=== PATIENT | male | born 1950 | race African-American/Black ===

== ENCOUNTER 2016-04-16 16:29 | Inpatient (IN) | payer BC ==
[~2016-04-16] VITALS: Ht 182.9 cm; Wt 91.1 kg
[~2016-04-16 16:29] MED LIST: LATA0.002 EACH EYE; SYMB160A INH; VIAG25TA PO
[2016-04-20] MEDS ORDERED: THROMBIN (TOPICAL) 5,000 UNIT VIAL ONE ×2 (07:00→11:08)
[2016-04-20] MEDS ORDERED: MICROFIBRILLAR COLLAGEN HEMOSTAT 70 X 35 MM BANDAGE ONE (07:00)
[2016-04-20] MEDS ORDERED: LACTATED RINGER'S 1000 ML IV SCH (07:00)
[2016-04-20] MEDS ORDERED: INSULIN HUMAN REGULAR 1,000 UNITS/10 ML VIAL SQ PRN (07:00)
[2016-04-20] MEDS: SODIUM CHLORID 0.9% 500 ML IV SCH ×2 (07:00→23:21)
[2016-04-20] MEDS ORDERED: ceFAZolin INJ 1,000 MG VIAL ONE ×2 (07:00→07:04)
[2016-04-20] MEDS ORDERED: GELFOAM SIZE 100 ONE (07:00)
[2016-04-20] MEDS ORDERED: METOPROLOL TARTRATE 25 MG TAB PO PRN (07:00)
[2016-04-20] MEDS ORDERED: GENTAMICIN SULFATE 80 MG/2 ML VIAL ONE (07:00)
[2016-04-20] MEDS ORDERED: VANCOMYCIN HCL 1000 MG VIAL ONE (07:04)
[2016-04-20 07:15] VITALS: BP 143/81; PULSE 54; RESP 16; TEMP 97.4; O2SAT 100
[2016-04-20] MEDS ORDERED: MIDAZOLAM HCL 2 MG/2 ML VIAL ONE (08:27)
[2016-04-20] MEDS ORDERED: ARTIFICIAL TEARS OPTH OINT 3.5 APPLIC/3.5 GM TUBO ONE (08:27)
[2016-04-20] MEDS ORDERED: fentaNYL CITRATE 250 MCG/5 ML AMP ONE ×2 (08:27→13:27)
[2016-04-20] MEDS ORDERED: HYDROmorphone HCL PF 2 MG/ML VIAL ONE (08:27)
[2016-04-20] MEDS ORDERED: ACETAMINOPHEN 1000 MG/100 ML VIAL IV ONE (08:27)
[2016-04-20] MEDS ORDERED: PROPOFOL 200 MG/20 ML AMP IV ONE (10:46)
[2016-04-20] MEDS ORDERED: ONDANSETRON HCL 4 MG/2 ML VIAL IV PUSH ONE (10:46)
[2016-04-20] MEDS ORDERED: LACTATED RINGER'S 1000 ML INJ 2,000 ML IV ONE (10:46)
[2016-04-20] MEDS ORDERED: SODIUM CHLORID 0.9% 500 ML INJ 500 ML IV ONE (10:46)
[2016-04-20] MEDS ORDERED: GELATIN POWDER 1 GM PACKET ONE (11:08)
[2016-04-20] MEDS ORDERED: BUPIVACAINE/EPINEPHRINE 0.5% PF 30 ML VIAL INFIL ONE (12:08)
[2016-04-20] MEDS ORDERED: ACETAMINOPHEN 325 MG TAB PO PRN (12:15)
[2016-04-20] MEDS ORDERED: BISACODYL 10 MG SUPP PR PRN (12:15)
[2016-04-20] MEDS ORDERED: SODIUM CHLORIDE 0.9% FLUSH 5 ML FLUSH IVF PRN (12:15)
[2016-04-20] MEDS ORDERED: ONDANSETRON HCL 4 MG/2 ML VIAL IV PRN (12:15)
[2016-04-20] MEDS ORDERED: CYCLOBENZAPRINE HCL 10 MG TAB PO PRN (12:15)
[2016-04-20] MEDS ORDERED: MORPHINE SULFATE 4 MG/ML INJ IV PUSH PRN ×2 (12:15)
[2016-04-20] MEDS ORDERED: MENTHOL LOZENGE SUCK-ON PRN (12:15)
[2016-04-20] MEDS: NS + KCL 20 MEQ INJ 1,000 ML IV SCH (13:38)
--- NOTE | 2016-04-20 13:38 | RADRPT ---
EXAM DATE/TIME: 04/20/2016 09:50 [facility] COMPARISON: No previous studies available for comparison. INDICATIONS : Post-op C3-C7 laminoplasty. MEDICAL HISTORY : None. SURGICAL HISTORY : None. ENCOUNTER: Initial ACUITY: 1 day PAIN SCORE: Non-responsive. LOCATION: neck FINDINGS: 4 level right-sided laminoplasty is seen beginning at C3. Normal appearing alignment. No acute compli cation demonstrated. CONCLUSION: Right laminoplasty Paul Martinez MD on April 20, 2016 at 13:33 Board Certified Radiologist. This report was verified electronically.
--- NOTE | 2016-04-20 13:39 | RADRPT ---
EXAM DATE/TIME: 04/20/2016 09:50 [facility] COMPARISON: No previous studies available for comparison. INDICATIONS : C3-C7 laminoplasty. Level localization. MEDICAL HISTORY : None. SURGICAL HISTORY : None. ENCOUNTER: Initial ACUITY: 1 day PAIN SCORE: Non-responsive. LOCATION: neck FINDINGS: Several lateral views in the operating room were obtained. There are posterior retractors and a metal lic pointer. The pointer projects over the posterior spinous process of C3. CONCLUSION: Pointer is at C3 posterior elements. Paul Martinez MD on April 20, 2016 at 13:36 Board Certified Radiologist. This report was verified electronically.
[2016-04-20] MEDS ORDERED: HYDR-3583 PO (13:49)
[2016-04-20] MEDS: SODIUM CHLORIDE 0.9% FLUSH 5 ML FLUSH IVF SCH ×2 (14:36→20:35)
[2016-04-20 14:55] VITALS: BP 138/77; PULSE 59; RESP 17; TEMP 95.7; O2SAT 100
--- NOTE | 2016-04-20 14:58 | PD.OP ---
Operative Report Date of Surgery: Apr 20, 2016 Preoperative Diagnosis: cervical spinal stenosis with myelopathy Postoperative Diagnosis: cervical spinal stenosis with myelopathy Procedure: C3-C4, C4-C5, C5-C6, C6-C7 decompressive cervical laminectomy and laminoplasty. Microsurgical dissection Anesthesia: general Surgeon: Ehsan Escobar Dial Polisher(s): Zoraida castano Operation and Findings: INDICATIONS FOR THE PROCEDURE Mr Stevens is a 65 year-old male who presented with cervical myelopathy related to severe spinal stenosis. He hasd severe cervical spinal stenosis with cord compression at multiple levels. He has failed conservative nonoperative treatment. A surgical decompression and laminoplasty was indicated followed by a potential staged anterior decompression of the spinal cord. The [id number] details of the procedure, indications, alternatives, risks and potential complications were fully discussed with the patient. The patient fully understood. All The questions were answered. No guarantees were given. The patient voiced requesting the procedure and provided informed consents. The patient was offered the alternative of delaying the procedure and continuing with nonsurgical management. DETAILS OF THE SURGICAL PROCEDURE After the induction of general anesthesia, endotracheal intubation was performed. Electrodes were placed for electrophysiological monitoring of the somatosensorial evoked potentials, EMG, and motor evoked potentials prior to the intubation and kept thorough the procedure. A Fuentes catheter, bilateral MISTY hose, and sequential compression devices were placed and kept throughout the procedure. The patient was carefully log-rolled to the prone position on a 3080 table.All pressure points were carefully padded with eggcrate mattress. The eyes were tapped shut after ointment was applied by the anesthesiologist to prevent corneal abrasion. A Nikko hugger was placed over the expossed lower body to maintain control of the core body temperature. The electrophysiological team placed the needles and electrodes in their proper location and baseline SSEP's and motor evoked potentials were registered. The posterior cervical region was prepped and draped in the usual sterile fashion. A localizing X-ray was performed with the C-arm and the fracture was localized. A medial incision was outlined from the spinous process of C3 down to C7 Surgical Approach A midline skin incision was made with a #10 blade. Dissection was carried out through the posterior cervical fascia and ligamentum nuchae with a Bovie. The spinous process of C3 down to C7 were exposed and a subperiosteal dissection was performed over the spinous process, lamina lateral masses of C3 down to C7 retracting the muscles laterally off the spinous processes, laminae, and medial aspect of the facets. Special care was taken to preserve the supraspinous and interspinous ligaments at the proximal and distal extents of the exposure during the approach. Also, special care was taken to preserve the muscular attachments to C2 as much as possible, to minimize risk of postoperative kyphotic deformity between C2 and C3. Bilateral self retaining retractors were placed on incision. Surgical decompression The operative microscope was draped in the usual sterile fashion and brought to the field. The rest of the surgical procedure was performed using microdissection technique with the exception of the closure. Under the operative microscope, the laminas at C3, C4, C5, C6, and C7 were carefully drilled at the "open side" using the TPS drill with a AM8 drill bit. The ligamentum Flavum was carefully released using dissectors and a 2mm thin foot plate cervical Kerrison. The incision was irrigated with basic ortho solution Then. the laminae at the hinged side were carefully cut incompletely open on the right side with the TPS drill.Using controlled, [id number] brushing motions with a cutting dora and the TPS microdrill, a trough is made at the junction of the lamina and lateral mass from C3 to C7 by decorticating the posterior aspect of the lamina. This allowed to create a "greenstick fracture" on the hinged side, with special; care to avoid completely breaking through the inner cortex of the lamina. Laminoplasty Once the laminae were thinned sufficiently, the posterior elements were opened by gradually and carefully pulling the spinous process toward the hinged side, and lifting the lamina off the spinal cord with a curet on the opening side. Opening the laminae as a single unit, while preserving the intraspinous ligaments allowed to create a greenstick fracture along the trough on the hinged side. A Woodsen probe or elevator was used to release any adhesions between the dura and ventral lamina on the opened side. The opening of the laminae allowed for adequate canal expansion. Then a foraminotomy was performed on the open side using a thin foot plate 2mm Kerrison. Hemostasis was achieved with thrombin- soaked gelfoam and bipolar electrocautery. Bony bleeding is controlled with bone wax. Them, the laminae were stabilized in an open position using structural wedge allografts, secured in place using Titanium Playbasisuy miniplates with 6mm screws. The use of double pre-bent miniplate of appropriate length fixed to the allograft via a center screw hole, allowed to place the construct in the laminar opening, such that the laminar edges are wedged securely in the laminar gap. Then, the miniplates were secured usingt self-tapping screws on both the laminar and lateral mass side. Prebent, miniplates were also using in the hinged side of the lamina, in order to create a secured construct. Completion of the Procedure The incision was thoroughly irrigated with several liters of antibiotic solution. A seven mm Michele-Herrera drain was left on the epidural space and was then externalized through a separate stab incision. The incision was then closed in layers. 0 Vicryl with interrupted sutures were used to close the thoracolumbar fascia. The superficial fascia was closed with 0 Vicryl sutures. Three-0 Vicryl was used to close the subcutaneous tissue. The skin was closed with 4-0 running subcuticular Vicryl. Dermabond was applied to the skin. The drain was secured 3-0 nylon. At the end of the procedure the sponges, needles, and instrument counts were all correct. Estimated blood loss was 500-600 cc's. No complications occurred. The patient received prophylactic antibiotics. The patient was then extubated and transferred to the recovery room in stable condition. The entire procedure was performed using electrophysiological monitor of the electromyogram, evoked potential and sphincters. No intraoperative changes were detected. Ehsan Escobar MD Apr 20, 2016 14:58
[2016-04-20] MEDS: DOCUSATE SODIUM 100 MG CAP PO SCH ×2 (15:57→20:35)
[2016-04-20] MEDS: PANTOPRAZOLE SOD 40 MG DELAYED RELEASE TAB PO SCH (15:58)
[2016-04-20] MEDS: ACETAMINOPHEN/HYDROcodone 325 MG/10 MG TAB PO PRN ×3 (15:58→20:35)
[2016-04-20] MEDS: DEXAMETHASONE SOD PHOS 4 MG/ML VIAL IV SCH ×2 (15:59→20:35)
[2016-04-20] MEDS: ceFAZolin 2 GM PREMIX 50 ML IV SCH (16:00)
--- NOTE | 2016-04-20 16:56 | HHI.DCPOC ---
Discharge Care Plan Diagnosis: (1) H/O excision of lamina of cervical vertebra for decompression of spinal cord Goals to Promote Your Health * To prevent worsening of your condition and complications * To maintain your health at the optimal level Directions to Meet Your Goals Take your medications as prescribed Follow your dietary instruction Follow activity as directed Keep your appointments as scheduled Take your immunizations and boosters as scheduled If your symptoms worsen call your PCP, if no PCP go to Urgent Care Center or Emergency Room Smoking is Dangerous to Your Health. Avoid second hand smoke Call the 24-hour hour crisis hotline for domestic abuse at Danielle Courtney Apr 20, 2016 16:55
[2016-04-20 18:41] VITALS: O2SAT 99
[2016-04-20 20:10] VITALS: BP 159/97; PULSE 97; RESP 17; TEMP 96.4; O2SAT 99
[2016-04-20] MEDS ORDERED: LATANOPROST 0.005% OPHT SOLN 2.5 ML BTL EACH EYE SCH (21:00)
[2016-04-21] VITALS: BP 128/79; PULSE 96; RESP 16; TEMP 97.2; O2SAT 95
[2016-04-21] MEDS: DEXAMETHASONE SOD PHOS 4 MG/ML VIAL IV SCH ×3 (01:36→14:30)
[2016-04-21] MEDS: NS + KCL 20 MEQ INJ 1,000 ML IV SCH (01:36)
[2016-04-21] MEDS: ceFAZolin 2 GM PREMIX 50 ML IV SCH ×2 (01:36→09:01)
[2016-04-21 04:05] VITALS: BP 157/88; PULSE 78; RESP 16; TEMP 97.4; O2SAT 94
[2016-04-21] MEDS: ACETAMINOPHEN/HYDROcodone 325 MG/10 MG TAB PO PRN ×3 (05:16→14:31)
[2016-04-21 08:00] VITALS: BP 155/92; PULSE 82; RESP 18; TEMP 97.5; O2SAT 97
[2016-04-21] MEDS ORDERED: BUDESONIDE-FORMOTEROL 160/4.5 MCG INHALER INH SCH (09:00)
[2016-04-21] MEDS: DOCUSATE SODIUM 100 MG CAP PO SCH (09:01)
[2016-04-21] MEDS: PANTOPRAZOLE SOD 40 MG DELAYED RELEASE TAB PO SCH (09:01)
[2016-04-21] MEDS: SODIUM CHLORIDE 0.9% FLUSH 5 ML FLUSH IVF SCH (09:02)
[2016-04-21 12:00] VITALS: BP 145/81; PULSE 71; RESP 18; TEMP 97.4; O2SAT 96
[2016-04-23] MEDS ORDERED: IBUP800T23 PO (11:24)
== END 2016-04-21 16:37 | disposition home or self-care (01) | DRG 519 ==
LOC: HSDI 04-20 06:30 → N06B 04-20 14:53
PROVIDERS: ADMIT Neurological Surgery; ATTEND Neurological Surgery
PROC: 00NW3ZZ Release Cervical Spinal Cord, Percutaneous Approach (ICD-10-PCS; principal; 2016-04-20 08:40)
DX: M48.02 Spinal stenosis, cervical region (principal); G95.9 Disease of spinal cord, unspecified
CPT/HCPCS: 72020; 72040; 76000; 86850; 86900; 86901; 94150; C1713; J0131; J0690; J1100; J1170; J1580; J2250; J2405; J3010; J3370; J3480; J7040; J7120; L0150; L0172